=== PATIENT | female | born 1995 ===

== ENCOUNTER 2017-02-04 13:52 | Emergency (ER) | payer SELFPAY ==
[2017-02-04 14:01] VITALS: TEMP 98.2
--- NOTE | 2017-02-04 14:14 | ED PDOC ---
HPI: General Adult Time Seen by Provider: 02/04/17 14:05 Chief Complaint (Nursing): Dizziness/Lightheaded Chief Complaint (Provider): near syncopal episode History Per: Patient History/Exam Limitations: no limitations Onset/Duration Of Symptoms: Other (prior to arrival) Additional Complaint(s): 21yo female was standing at work when she started seeing "spots" and felt like she was going to pass out, prompting this ED visit. She reports that after sitting down she felt better. Patient works in a classroom with students. She ate and drank today. No chest pain or shortness of breath. No fall, LOC, head injury, abdominal pain, urinary symptoms. Last menstrual period was 2 weeks ago. Past Medical History Reviewed: Historical Data, Nursing Documentation, Vital Signs Vital Signs: Last Vital Signs Temp 98.2 F 02/04/17 13:58 Pulse 90 02/04/17 13:58 Resp 18 02/04/17 13:58 BP 132/77 02/04/17 13:58 Pulse Ox 100 02/04/17 14:52 - Medical History PMH: Asthma Denies: Chronic Kidney Disease - Surgical History Surgical History: No Surg Hx - Family History Family History: States: Unknown Family Hx - Social History Drugs: Denies - Home Medications Home Medications: Ambulatory Orders Medication Instructions Recorded Albuterol 0.083% [Albuterol 0.083% 2.5 mg IH QID PRN #20 08/14/16 Inhal Tara (2.5 mg/3 ml) UD] Albuterol HFA [Ventolin HFA 90 1 puff IH BID PRN #1 unit 08/14/16 mcg/actuation (8 g)] Amoxicillin/Clavulanate [Augmentin 1 tab PO BID #20 tab 08/14/16 875 MG-125 MG] - Allergies Allergies/Adverse Reactions: Allergies Allergy/AdvReac Type Severity Reaction Status Date / Time No Known Allergies Allergy Verified 08/14/16 15:16 Review of Systems ROS Statement: Except As Marked, All Systems Reviewed And Found Negative Constitutional: Negative for: Fever, Chills ENT: Negative for: Throat Swelling Cardiovascular: Positive for: Palpitations. Negative for: Chest Pain Respiratory: Negative for: Cough, Shortness of Breath, SOB with Exertion Gastrointestinal: Negative for: Nausea, Vomiting, Abdominal Pain, Diarrhea, Constipation Genitourinary Female: Negative for: Dysuria, Hematuria Musculoskeletal: Negative for: Neck Pain Skin: Negative for: Rash Neurological: Positive for: Other (near syncope). Negative for: Incoordination , Change in Speech, Seizures, Altered Mental Status, Headache Physical Exam - Reviewed Nursing Documentation Reviewed: Yes Vital Signs Reviewed: Yes - Physical Exam Appears: Positive for: Well, Non-toxic, No Acute Distress Head Exam: Positive for: ATRAUMATIC, NORMAL INSPECTION, NORMOCEPHALIC Skin: Positive for: Warm, Dry Eye Exam: Positive for: EOMI, PERRL ENT: Positive for: Normal ENT Inspection Cardiovascular/Chest: Positive for: Regular Rate, Rhythm Respiratory: Positive for: Normal Breath Sounds. Negative for: Rales, Rhonchi, Wheezing Gastrointestinal/Abdominal: Positive for: Normal Exam, Soft. Negative for: Tenderness Back: Positive for: Normal Inspection Extremity: Positive for: Normal ROM Neurologic/Psych: Positive for: Alert, senior estimator II-XII, Oriented (x3), Gait (normal) . Negative for: Motor/Sensory Deficits - ECG O2 Sat by Pulse Oximetry: 100 (RA) Pulse Ox Interpretation: Normal Medical Decision Making Medical Decision Makin: impression near syncope r/o electrolyte abnormality, orthostatic hypotension, arrhythmia, Plan: --ekg --orthostatics --abs --ivf --reassess 2:51PM Nurse performed orthostatic vital signs and they are positive for a change. IVF infusing. 3:00PM Will sign out to Dr. Hilario to follow-up labs, test, ekg and reevaluate after fluids Disposition - Clinical Impression Clinical Impression: Pre-syncope - Disposition Disposition Time: 15:00 Condition: FAIR Additional Comments - Additional Comments Additional Comments: Scribe Attestation: Documented by Geramin Shi acting as a scribe for Ami Pandya MD. Scribe Attestation: All medical record entries made by the Scribe were at my direction and personally dictated by me. I have reviewed the chart and agree that the record accurately reflects my personal performance of the history, physical exam, medical decision making, and the department course for this patient. I have also personally directed, reviewed, and agree with the discharge instructions and disposition.
[2017-02-04 14:57] LABS: BASO % 0.6 % (0.0-2.0); EOS # 0.2 K/uL (0.0-0.7); EOS % 2.6 % (0.0-4.0); HEMATOCRIT 39.5 % (34.0-47.0); LYMPH % 23.5 % (20.0-40.0); MEAN CELL VOLUME 84.1 fl (81.0-99.0); MEAN CORPUSCULAR HEMOGLOBIN 28.5 pg (27.0-31.0); MEAN CORPUSCULAR HGB CONC 33.9 g/dL (33.0-37.0); MEAN PLATELET VOLUME 9.1 fl (7.2-11.7); MONO # 0.5 K/uL (0.0-0.8); MONO % 6.2 % (0.0-10.0); NEUT # 5.8 K/uL (1.8-7.0); NEUT % 67.1 % (50.0-75.0); NRBC % 0.1 % (0.0-0.0); RED CELL DISTRIBUTION WIDTH 13.4 % (11.5-14.5); WHITE BLOOD COUNT 8.6 K/uL (4.8-10.8)
--- NOTE | 2017-02-04 15:08 | ED PDOC ---
- Laboratory Results Result Diagrams: 02/04/17 12:00 02/04/17 15:30 - ECG O2 Sat by Pulse Oximetry: 100 (RA) Medical Decision Making Medical Decision Makin signed over to me by Stewart Pandya MD pending labs, EKG, reassess Time: 1710 Patient reports feeling significantly better, tolerated PO and will be discharged with follow up instructions. Disposition Counseled Patient/Family Regarding: Studies Performed, Diagnosis, Need For Followup - Clinical Impression Clinical Impression: Near syncope - POA Present On Arrival: None - Disposition Referrals: [facility] [Outside] [facility] [Outside] Disposition: Routine/Home Disposition Time: 16:00 Condition: IMPROVED Additional Instructions: follow up with your primary doctor in 1-2 days. stay hydrated. return to the ED with any worsening or concerning symptoms. Instructions: Near Syncope (ED) Forms: [facility] ED School/Work Excuse Additional Comments - Additional Comments Additional Comments: Scribe Attestation: Documented by Germain Shi acting as a scribe for Danitza Hilario MD. Scribe Attestation: All medical record entries made by the Scribe were at my direction and personally dictated by me. I have reviewed the chart and agree that the record accurately reflects my personal performance of the history, physical exam, medical decision making, and the department course for this patient. I have also personally directed, reviewed, and agree with the discharge instructions and disposition.
[2017-02-04 15:18] LABS: ALB/GLOB RATIO 1.2 (1.0-2.1); ALKALINE PHOSPHATASE 61 U/L (38-126); ALT/SGPT 13 U/L (9-52); AST/SGOT 54 U/L (14-36); BILIRUBIN,TOTAL 1.2 mg/dl (0.2-1.3); BLOOD UREA NITROGEN 19 mg/dl (7-17); CALCIUM 9.3 mg/dL (8.4-10.2); CARBON DIOXIDE 25 mmol/L (22-30); CHLORIDE 103 mmol/L (98-107); GFR AFRICAN-AMERICAN > 60; GLUCOSE,RANDOM 76 mg/dL (65-105); MAGNESIUM 1.9 MG/DL (1.6-2.3); PHOSPHOROUS 4.6 mg/dl (2.5-4.5); SODIUM 140 mmol/l (132-148); TOTAL PROTEIN 8.5 G/DL (6.3-8.2)
[2017-02-04 15:24] LABS: POTASSIUM 5.6 MMOL/L (3.6-5.0)
[2017-02-04 16:20] LABS: ALB/GLOB RATIO 1.3 (1.0-2.1); ALKALINE PHOSPHATASE 56 U/L (38-126); ALT/SGPT 23 U/L (9-52); AST/SGOT 23 U/L (14-36); BILIRUBIN,TOTAL 0.2 mg/dl (0.2-1.3); BLOOD UREA NITROGEN 18 mg/dl (7-17); CALCIUM 9.1 mg/dL (8.4-10.2); CARBON DIOXIDE 26 mmol/L (22-30); CHLORIDE 106 mmol/L (98-107); GFR AFRICAN-AMERICAN > 60; GLUCOSE,RANDOM 81 mg/dL (65-105); POTASSIUM 4.4 MMOL/L (3.6-5.0); SODIUM 141 mmol/l (132-148)
[2017-02-04 17:25] VITALS: BP 112/82; PULSE 82; RESP 16
[2017-02-04 22:34] VITALS: O2SAT 100
== END 2017-02-04 17:25 | disposition home or self-care (01) ==
LOC: H.ER 13:52
DX: R55 Syncope and collapse (principal)
CPT/HCPCS: 80053; 81025; 83735; 84100; 85025; 99283; J7040

== ENCOUNTER 2017-03-03 17:33 | Emergency (ER) | payer OTHER ==
[2017-03-03 17:39] VITALS: BP 136/80; PULSE 87; RESP 18; TEMP 98.5; O2SAT 100
--- NOTE | 2017-03-03 17:47 | ED PDOC ---
- ECG O2 Sat by Pulse Oximetry: 100
--- NOTE | 2017-03-03 18:13 | ED PDOC ---
HPI: Psych/Substance Abuse Time Seen by Provider: 03/03/17 17:39 Chief Complaint (Nursing): Anxiety Chief Complaint (Provider): Anxiety History Per: Patient History/Exam Limitations: no limitations Onset/Duration Of Symptoms: Days (x2-3 prior to arrival) Additional Complaint(s): Anai Dubon, 21 year old female presents to the ED on 03/03/17 stating that she has been having increased anxiety for 2-3 days prior to arrival. The patient has had anxiety attacks in the past and has seen her doctor for it. She has been prescribed Xanax once and has never seen a psychiatrist. The patient states that she has been feeling very stressed out at work and at home. When she gets the attack she feels very jittery and overwhelmed. She also states that has been having intermittent periumbilical abdominal pain for 2 days. The patient denies any suicidal/homicidal ideations, nausea, vomiting, and diarrhea. The patient's last bowel movement was today and was normal. She currently does not have any symptoms. PMD: Bao Mueller MD Past Medical History Reviewed: Historical Data, Nursing Documentation, Vital Signs Vital Signs: Last Vital Signs Temp 98.5 F 03/03/17 17:34 Pulse 87 03/03/17 17:34 Resp 18 03/03/17 17:34 BP 136/80 03/03/17 17:34 Pulse Ox 100 03/03/17 17:34 - Medical History PMH: Anxiety, Asthma Denies: Chronic Kidney Disease - Family History Family History: States: Unknown Family Hx - Home Medications Home Medications: Ambulatory Orders Medication Instructions Recorded Albuterol 0.083% [Albuterol 0.083% 2.5 mg IH QID PRN #20 08/14/16 Inhal Tara (2.5 mg/3 ml) UD] Albuterol HFA [Ventolin HFA 90 1 puff IH BID PRN #1 unit 08/14/16 mcg/actuation (8 g)] Amoxicillin/Clavulanate [Augmentin 1 tab PO BID #20 tab 08/14/16 875 MG-125 MG] Nitrofurantoin Macrocrystals 100 mg PO BID #14 cap 03/03/17 [Macrobid] - Allergies Allergies/Adverse Reactions: Allergies Allergy/AdvReac Type Severity Reaction Status Date / Time No Known Allergies Allergy Verified 08/14/16 15:16 Review of Systems Gastrointestinal: Positive for: Abdominal Pain (periumbilical). Negative for: Nausea, Vomiting, Diarrhea Psych: Positive for: Anxiety. Negative for: Suicidal ideation (and no homicidal ideations) Physical Exam - Reviewed Nursing Documentation Reviewed: Yes Vital Signs Reviewed: Yes - Physical Exam Appears: Positive for: Well, Non-toxic, No Acute Distress Head Exam: Positive for: ATRAUMATIC, NORMOCEPHALIC Skin: Positive for: Normal Color, Warm, Dry Eye Exam: Positive for: Normal appearance ENT: Positive for: Normal ENT Inspection Neck: Positive for: Normal, Painless ROM Cardiovascular/Chest: Positive for: Regular Rate, Rhythm, Chest Non Tender Respiratory: Positive for: Normal Breath Sounds. Negative for: Respiratory Distress Gastrointestinal/Abdominal: Positive for: Normal Exam, Soft. Negative for: Tenderness Back: Positive for: Normal Inspection Extremity: Positive for: Normal ROM Neurologic/Psych: Positive for: Alert, Oriented (x3) - Laboratory Results Result Diagrams: 03/03/17 18:29 03/03/17 18:29 Urine POC: Negative - ECG O2 Sat by Pulse Oximetry: 100 (RA) Pulse Ox Interpretation: Normal Medical Decision Making Medical Decision Makin:39 Initial Impression: Anxiety Initial Plan: * Alcohol Serum Stat * COMP Metabolic Panel Stat * Drug Screen, Urine Stat * Lipase Stat * ED Urine (POC) Stat * ED Urine Dipstick (POC) Stat * CBC (with Differential) Stat * Crisis Evaluation As Ordered Scribe Attestation: Documented by Kalpana Moreno, acting as a scribe for Hammad Lenz PA-C. Provider Scribe Attestation: All medical record entries made by the Scribe were at my direction and personally dictated by me. I have reviewed the chart and agree that the record accurately reflects my personal performance of the history, physical exam, medical decision making, and the department course for this patient. I have also personally directed, reviewed, and agree with the discharge instructions and disposition. Disposition - Clinical Impression Clinical Impression: UTI (urinary tract infection), Anxiety - Patient ED Disposition Is Patient to be Admitted: No - Disposition Disposition: Routine/Home Disposition Time: 19:33 Condition: STABLE Additional Instructions: Follow up with psychiatrist as scheduled without fail. Prescriptions: Nitrofurantoin Macrocrystals [Macrobid] 100 mg PO BID #14 cap Instructions: Urinary Tract Infection in Women (ED), Anxiety (ED) Forms: [facility] ED School/Work Excuse Print Language: URUGUAYAN
[2017-03-03 18:35] LABS: BASO # 0.1 K/uL (0.0-0.2); BASO % 0.6 % (0.0-2.0); EOS # 0.2 K/uL (0.0-0.7); LYMPH # 2.2 K/uL (1.0-4.3); LYMPH % 23.3 % (20.0-40.0); MEAN CELL VOLUME 84.6 fl (81.0-99.0); MEAN CORPUSCULAR HEMOGLOBIN 28.3 pg (27.0-31.0); MEAN CORPUSCULAR HGB CONC 33.4 g/dL (33.0-37.0); MEAN PLATELET VOLUME 8.6 fl (7.2-11.7); MONO # 0.5 K/uL (0.0-0.8); MONO % 5.8 % (0.0-10.0); NEUT # 6.4 K/uL (1.8-7.0); NEUT % 68.3 % (50.0-75.0); RED CELL DISTRIBUTION WIDTH 13.2 % (11.5-14.5); WHITE BLOOD COUNT 9.4 K/uL (4.8-10.8)
[2017-03-03 18:45] LABS: ALB/GLOB RATIO 1.2 (1.0-2.1); ALCOHOL SERUM < 10 mg/dl (0-10); ALKALINE PHOSPHATASE 58 U/L (38-126); ALT/SGPT 24 U/L (9-52); AST/SGOT 21 U/L (14-36); BILIRUBIN,TOTAL 0.2 mg/dl (0.2-1.3); BLOOD UREA NITROGEN 17 mg/dl (7-17); CALCIUM 9.3 mg/dL (8.4-10.2); CARBON DIOXIDE 25 mmol/L (22-30); CHLORIDE 102 mmol/L (98-107); GFR AFRICAN-AMERICAN > 60; GLUCOSE,RANDOM 82 mg/dL (65-105); LIPASE 142 U/L (23-300); SODIUM 139 mmol/l (132-148); TOTAL PROTEIN 7.9 G/DL (6.3-8.2)
[2017-03-03 19:12] LABS: RBC URINE 1 /hpf (0-3); URINE BACTERIA FEW (<OCC); URINE BILIRUBIN NEGATIVE (NEGATIVE); URINE BLOOD NEGATIVE (NEGATIVE); URINE COLOR YELLOW (YELLOW); URINE GLUCOSE (UA) NEG (Normal); URINE KETONE NEGATIVE (NEGATIVE); URINE LEUKOCYTE ESTERASE MOD Leu/uL (Negative); URINE PROTEIN NEGATIVE (NEGATIVE); URINE UROBILINOGEN 0.2-1.0 mg/dL (0.2-1.0); WBC URINE 2 /hpf (0-5)
== END 2017-03-03 20:29 | disposition home or self-care (01) ==
LOC: H.ER 17:33
DX: F41.9 Anxiety disorder, unspecified (principal); N39.0 Urinary tract infection, site not specified; J45.909 Unspecified asthma, uncomplicated

== ENCOUNTER 2017-06-03 21:11 | Emergency (ER) | payer SELFPAY ==
[2017-06-03 21:32] VITALS: BP 159/90; PULSE 89; RESP 16; TEMP 98.6; O2SAT 99
--- NOTE | 2017-06-03 22:01 | ED PDOC ---
HPI: General Adult Time Seen by Provider: 06/03/17 21:51 Chief Complaint (Nursing): Back Pain Chief Complaint (Provider): Tender bumps, left neck x 3 days History Per: Patient History/Exam Limitations: no limitations Onset/Duration Of Symptoms: Days Have you had recent travel within the past 21 days to any of the following countries: [place], [place], [place] or [place]?: No Current Symptoms Are (Timing): Still Present Severity: Mild Pain Scale Rating Of: 4 Additional Complaint(s): No sore throat, stuffy nose, ear pain. No weight loss. No fever/chills Past Medical History Reviewed: Historical Data, Nursing Documentation, Vital Signs Vital Signs: Last Vital Signs Temp 98.6 F 06/03/17 21:28 Pulse 89 06/03/17 21:28 Resp 16 06/03/17 21:28 BP 159/90 H 06/03/17 21:28 Pulse Ox 99 06/03/17 21:28 - Medical History PMH: Anxiety, Asthma Denies: Chronic Kidney Disease - Surgical History Surgical History: No Surg Hx - Family History Family History: States: Unknown Family Hx - Home Medications Home Medications: Ambulatory Orders Medication Instructions Recorded Albuterol 0.083% [Albuterol 0.083% 2.5 mg IH QID PRN #20 08/14/16 Inhal Tara (2.5 mg/3 ml) UD] Albuterol HFA [Ventolin HFA 90 1 puff IH BID PRN #1 unit 08/14/16 mcg/actuation (8 g)] Amoxicillin/Clavulanate [Augmentin 1 tab PO BID #20 tab 08/14/16 875 MG-125 MG] Nitrofurantoin Macrocrystals 100 mg PO BID #14 cap 03/03/17 [Macrobid] Amoxicillin/Clavulanate [Augmentin 1 tab PO BID #20 tab 06/03/17 875 MG-125 MG] Ibuprofen [Motrin Tab] 800 mg PO Q6H PRN #20 tab 06/03/17 - Allergies Allergies/Adverse Reactions: Allergies Allergy/AdvReac Type Severity Reaction Status Date / Time No Known Allergies Allergy Verified 08/14/16 15:16 Review of Systems ROS Statement: Except As Marked, All Systems Reviewed And Found Negative Constitutional: Negative for: Fever, Chills, Weakness ENT: Negative for: Ear Pain, Throat Pain Cardiovascular: Negative for: Chest Pain Musculoskeletal: Positive for: Neck Pain Skin: Negative for: Rash Physical Exam - Reviewed Nursing Documentation Reviewed: Yes Vital Signs Reviewed: Yes - Physical Exam Appears: Positive for: Well, Non-toxic, No Acute Distress Head Exam: Positive for: ATRAUMATIC, NORMAL INSPECTION, NORMOCEPHALIC Skin: Positive for: Normal Color, Warm, DRY Eye Exam: Positive for: Normal appearance ENT: Positive for: Normal ENT Inspection Neck: Positive for: Normal, Painless ROM Respiratory: Negative for: Accessory Muscle Use, Respiratory Distress Back: Positive for: Normal Inspection Extremity: Positive for: Normal ROM Lymphatic: Positive for: Adenopathy (Left posterior neck ) Neurologic/Psych: Positive for: Alert, Oriented - ECG O2 Sat by Pulse Oximetry: 99 Medical Decision Making Medical Decision Making: Discussed f/u for labs and biopsy if symptoms persist after antibiotics. Disposition - Clinical Impression Clinical Impression: Lymph node enlargement - Patient ED Disposition Is Patient to be Admitted: No Counseled Patient/Family Regarding: Diagnosis, Need For Followup, Rx Given - Disposition Referrals: [facility] [Outside] Disposition: Routine/Home Disposition Time: 22:01 Condition: GOOD Prescriptions: Amoxicillin/Clavulanate [Augmentin 875 MG-125 MG] 1 tab PO BID #20 tab Ibuprofen [Motrin Tab] 800 mg PO Q6H PRN #20 tab PRN Reason: Pain Instructions: Lymphadenopathy (ED)
== END 2017-06-03 22:37 | disposition home or self-care (01) ==
LOC: H.ER 21:11
DX: R59.9 Enlarged lymph nodes, unspecified (principal); F41.9 Anxiety disorder, unspecified; J45.909 Unspecified asthma, uncomplicated

== ENCOUNTER 2017-08-21 12:30 | Emergency (ER) | payer SELFPAY ==
[2017-08-21 12:40] VITALS: BP 156/83; PULSE 101; RESP 18; TEMP 98.7; O2SAT 96
[2017-08-21] MEDS ORDERED: Absorbable Gelatin Sponge Size 12-7 ONE (12:42)
[2017-08-21] MEDS ORDERED: Absorbable Gelatin Sponge Size 12-7 TP ONE (12:50)
--- NOTE | 2017-08-21 12:51 | ED PDOC ---
HPI: Skin/Bite Injury Time Seen by Provider: 08/21/17 12:36 Chief Complaint (Nursing): Abnormal Skin Integrity Chief Complaint (Provider): Hand laceration History Per: Patient History/Exam Limitations: no limitations Onset/Duration Of Symptoms: Mins Current Symptoms Are (Timing): Still Present Quality Of Symptoms: Painful Severity: Moderate Additional Complaint(s): Pt was helping make a halloween constum. She states she was tring to cut a peice of metal and the scissor slipped. Unknown tetanus. Past Medical History Reviewed: Historical Data, Nursing Documentation, Vital Signs Vital Signs: Last Vital Signs Temp 98.7 F 08/21/17 12:36 Pulse 101 H 08/21/17 12:36 Resp 18 08/21/17 12:36 BP 156/83 H 08/21/17 12:36 Pulse Ox 96 08/21/17 12:36 - Medical History PMH: Anxiety, Asthma Denies: Chronic Kidney Disease - Surgical History Surgical History: No Surg Hx - Family History Family History: States: Unknown Family Hx - Living Arrangements Living Arrangements: With Family - Social History Current smoker - smoking cessation education provided: Yes Alcohol: None Drugs: Denies - Home Medications Home Medications: Ambulatory Orders Medication Instructions Recorded Albuterol 0.083% [Albuterol 0.083% 2.5 mg IH QID PRN #20 08/14/16 Inhal Tara (2.5 mg/3 ml) UD] Albuterol HFA [Ventolin HFA 90 1 puff IH BID PRN #1 unit 08/14/16 mcg/actuation (8 g)] Amoxicillin/Clavulanate [Augmentin 1 tab PO BID #20 tab 08/14/16 875 MG-125 MG] Nitrofurantoin Macrocrystals 100 mg PO BID #14 cap 03/03/17 [Macrobid] Amoxicillin/Clavulanate [Augmentin 1 tab PO BID #20 tab 06/03/17 875 MG-125 MG] Ibuprofen [Motrin Tab] 800 mg PO Q6H PRN #20 tab 06/03/17 Cephalexin [Keflex] 500 mg PO BID #14 capsule 08/21/17 - Allergies Allergies/Adverse Reactions: Allergies Allergy/AdvReac Type Severity Reaction Status Date / Time No Known Allergies Allergy Verified 08/21/17 12:35 Review of Systems ROS Statement: Except As Marked, All Systems Reviewed And Found Negative Constitutional: Negative for: Fever, Chills Skin: Positive for: Other (Laceration, palm ) Physical Exam - Reviewed Nursing Documentation Reviewed: Yes Vital Signs Reviewed: Yes - Physical Exam Appears: Positive for: Well, Non-toxic, No Acute Distress Head Exam: Positive for: ATRAUMATIC, NORMAL INSPECTION, NORMOCEPHALIC Skin: Positive for: Warm. Negative for: Normal Color (skin avulsion, base of index finger, left palm ) Eye Exam: Positive for: Normal appearance ENT: Positive for: Normal ENT Inspection Neck: Positive for: Normal, Painless ROM Respiratory: Negative for: Accessory Muscle Use, Respiratory Distress Back: Positive for: Normal Inspection Extremity: Positive for: Normal ROM, Other (Full ROM in hand ). Negative for: Tenderness Neurologic/Psych: Positive for: Alert, Oriented - ECG O2 Sat by Pulse Oximetry: 96 Medical Decision Making Medical Decision Making: Wound irrigated. Gell foam and pressure dressing applied. Disposition - Clinical Impression Clinical Impression: Skin avulsion, Tetanus toxoid vaccination administered at current visit - Patient ED Disposition Is Patient to be Admitted: No Counseled Patient/Family Regarding: Diagnosis, Need For Followup, Rx Given - Disposition Referrals: [facility] [Outside] Disposition: Routine/Home Disposition Time: 12:52 Condition: GOOD Prescriptions: Cephalexin [Keflex] 500 mg PO BID #14 capsule Instructions: Skin Avulsion (ED)
== END 2017-08-21 13:22 | disposition home or self-care (01) ==
LOC: H.ER 12:30
DX: S61.412A Laceration without foreign body of left hand, initial encounter (principal); F41.9 Anxiety disorder, unspecified; J45.909 Unspecified asthma, uncomplicated

== ENCOUNTER 2017-10-21 15:56 | Emergency (ER) | payer SELFPAY ==
[2017-10-21 16:06] VITALS: RESP 16; O2SAT 98
[2017-10-21] MEDS ORDERED: Naproxen 500 MG TAB PO ONE ×2 (17:12→18:17)
--- NOTE | 2017-10-21 18:34 | ED PDOC ---
HPI: General Adult Time Seen by Provider: 10/21/17 16:34 Chief Complaint (Nursing): ENT Problem History Per: Patient Additional Complaint(s): Pt. states for the past week she's had a sore throat along with feeling feverish. Has not used any meds to help relieve symptoms. Further states that she has pain with swallowing. Denies SOB, chest pain, abdominal pain, rash, throat swelling. Past Medical History Reviewed: Historical Data, Nursing Documentation, Vital Signs Vital Signs: Last Vital Signs Temp 97.4 F L 10/21/17 16:01 Pulse 105 H 10/21/17 16:01 Resp 16 10/21/17 16:01 BP 174/97 H 10/21/17 16:01 Pulse Ox 98 10/21/17 16:01 - Medical History PMH: Anxiety, Asthma Denies: Chronic Kidney Disease - Family History Family History: States: No Known Family Hx - Home Medications Home Medications: Ambulatory Orders Medication Instructions Recorded Albuterol 0.083% [Albuterol 0.083% 2.5 mg IH QID PRN #20 08/14/16 Inhal Taar (2.5 mg/3 ml) UD] Albuterol HFA [Ventolin HFA 90 1 puff IH BID PRN #1 unit 08/14/16 mcg/actuation (8 g)] Amoxicillin/Clavulanate [Augmentin 1 tab PO BID #20 tab 08/14/16 875 MG-125 MG] Nitrofurantoin Macrocrystals 100 mg PO BID #14 cap 03/03/17 [Macrobid] Amoxicillin/Clavulanate [Augmentin 1 tab PO BID #20 tab 06/03/17 875 MG-125 MG] Ibuprofen [Motrin Tab] 800 mg PO Q6H PRN #20 tab 06/03/17 Cephalexin [Keflex] 500 mg PO BID #14 capsule 08/21/17 Naproxen [Naprosyn] 500 mg PO BID PRN #14 tab 10/21/17 - Allergies Allergies/Adverse Reactions: Allergies Allergy/AdvReac Type Severity Reaction Status Date / Time No Known Allergies Allergy Verified 08/21/17 12:35 Review of Systems ROS Statement: Except As Marked, All Systems Reviewed And Found Negative ENT: Positive for: Throat Pain Physical Exam - Physical Exam Appears: Positive for: Well, Non-toxic, No Acute Distress Skin: Positive for: Normal Color, Warm. Negative for: Rash Eye Exam: Positive for: EOMI, Normal appearance, PERRL ENT: Positive for: TM Is/Are (non-erythematous, non-bulging b/l), Pharyngeal Erythema. Negative for: Tonsillar Exudate, Tonsillar Swelling Neck: Positive for: Normal, Painless ROM Cardiovascular/Chest: Positive for: Regular Rate, Rhythm Respiratory: Positive for: CNT, Normal Breath Sounds Gastrointestinal/Abdominal: Positive for: Normal Exam, Soft. Negative for: Tenderness, Organomegaly Back: Positive for: Normal Inspection. Negative for: L CVA Tenderness, R CVA Tenderness Extremity: Positive for: Normal ROM Neurologic/Psych: Positive for: Alert, Oriented - Laboratory Results Urine POC: Negative - ECG O2 Sat by Pulse Oximetry: 98 - Progress ED Course And Treament: Rapid strep: negative. Naproxen 500mg PO ordered. Repeat BP: 130/80 Disposition - Clinical Impression Clinical Impression: Pharyngitis - Patient ED Disposition Is Patient to be Admitted: No - Disposition Disposition: Routine/Home Disposition Time: 18:35 Condition: STABLE Prescriptions: Naproxen [Naprosyn] 500 mg PO BID PRN #14 tab PRN Reason: Pain Instructions: Pharyngitis in Children (ED) Print Language: KINYARWANDA
[2017-10-21 18:41] VITALS: BP 130/80; PULSE 82; TEMP 97.1
== END 2017-10-21 18:48 | disposition home or self-care (01) ==
LOC: H.ER 15:56
DX: J02.9 Acute pharyngitis, unspecified (principal); J45.909 Unspecified asthma, uncomplicated; F41.9 Anxiety disorder, unspecified

== ENCOUNTER 2018-09-21 19:31 | Emergency (ER) | payer OTHER ==
[2018-09-21 20:29] VITALS: O2SAT 100
--- NOTE | 2018-09-21 21:04 | ED PDOC ---
HPI: Headache Time Seen by Provider: 09/21/18 20:45 Chief Complaint (Nursing): Headache Chief Complaint (Provider): Headache History Per: Patient History/Exam Limitations: no limitations Onset/Duration Of Symptoms: Days (x1 day) Current Symptoms Are (Timing): Gone Now Additional Complaint(s): Anai Dubon is a 22 year old female with no past medical history, who presents to the emergency department after sustaining a minor head injury at work yesterday. Patient states she was using the fridge at work and hit her head on the freezer door, sustaining a minor scrape on her head. She states she had small amounts of blood at the site of the wound associated with a minor headache at the time. Patient is seeking a note to go back to work and denies any nausea or vomiting. PMD: Keshawn Serrano Past Medical History Reviewed: Historical Data, Nursing Documentation, Vital Signs Vital Signs: Last Vital Signs Temp 98.5 F 09/21/18 20:26 Pulse 88 09/21/18 20:26 Resp 20 09/21/18 20:26 BP 115/73 09/21/18 20:26 Pulse Ox 100 09/21/18 20:26 - Medical History PMH: Anxiety, Asthma Denies: Chronic Kidney Disease - Surgical History Surgical History: No Surg Hx - Family History Family History: States: Unknown Family Hx - Social History Current smoker - smoking cessation education provided: No Ex-Smoker (has not smoked in the last 12 months): No Alcohol: None Drugs: Denies - Home Medications Home Medications: Ambulatory Orders Medication Instructions Recorded Albuterol 0.083% [Albuterol 0.083% 2.5 mg IH QID PRN #20 08/14/16 Inhal Tara (2.5 mg/3 ml) UD] Albuterol HFA [Ventolin HFA 90 1 puff IH BID PRN #1 unit 08/14/16 mcg/actuation (8 g)] Amoxicillin/Clavulanate [Augmentin 1 tab PO BID #20 tab 08/14/16 875 MG-125 MG] Nitrofurantoin Macrocrystals 100 mg PO BID #14 cap 03/03/17 [Macrobid] Amoxicillin/Clavulanate [Augmentin 1 tab PO BID #20 tab 06/03/17 875 MG-125 MG] Ibuprofen [Motrin Tab] 800 mg PO Q6H PRN #20 tab 06/03/17 Cephalexin [Keflex] 500 mg PO BID #14 capsule 08/21/17 Naproxen [Naprosyn] 500 mg PO BID PRN #14 tab 10/21/17 - Allergies Allergies/Adverse Reactions: Allergies Allergy/AdvReac Type Severity Reaction Status Date / Time No Known Allergies Allergy Verified 08/21/17 12:35 Review of Systems ROS Statement: Except As Marked, All Systems Reviewed And Found Negative Gastrointestinal: Negative for: Nausea, Vomiting Neurological: Positive for: Headache Physical Exam - Reviewed Nursing Documentation Reviewed: Yes Vital Signs Reviewed: Yes - Physical Exam Appears: Positive for: Non-toxic, No Acute Distress Head Exam: Positive for: ATRAUMATIC, NORMOCEPHALIC Skin: Positive for: Normal Color Eye Exam: Positive for: Normal appearance, PERRL Cardiovascular/Chest: Negative for: Bradycardia, Tachycardia Respiratory: Negative for: Accessory Muscle Use, Respiratory Distress Neurologic/Psych: Positive for: Alert, Oriented (x3) - ECG O2 Sat by Pulse Oximetry: 100 (RA) Pulse Ox Interpretation: Normal Medical Decision Making Medical Decision Making: Time: 20:45 Plan: --Give note to patient regarding her visit to the ED. Scribe Attestation: Documented by Klever Schwarz, acting as a scribe for Azra Parson PA-C Provider Scribe Attestation: All medical record entries made by the Scribe were at my direction and personally dictated by me. I have reviewed the chart and agree that the record accurately reflects my personal performance of the history, physical exam, medical decision making, and the department course for this patient. I have also personally directed, reviewed, and agree with the discharge instructions and disposition. Disposition - Clinical Impression Clinical Impression: Head injury - Disposition Disposition: Routine/Home Disposition Time: 21:05 Condition: STABLE Instructions: Closed Head Injury (DC) Forms: [facility] (Albanian), [facility] ED School/Work Excuse
[2018-09-21 21:39] VITALS: BP 124/68; PULSE 74; RESP 16; TEMP 98.4
== END 2018-09-21 21:38 | disposition home or self-care (01) ==
LOC: H.ER 19:31
DX: S09.90XA Unspecified injury of head, initial encounter (principal); W22.8XXA Striking against or struck by other objects, initial encounter; Y99.0 Civilian activity done for income or pay

== ENCOUNTER 2018-12-05 08:43 | Emergency (ER) | payer OTHER ==
[2018-12-05 08:50] VITALS: RESP 18; O2SAT 99
--- NOTE | 2018-12-05 10:15 | RAD ---
Date of service: 12/05/2018 HISTORY: Cough COMPARISON: No prior. TECHNIQUE: Chest PA and lateral FINDINGS: LINES AND TUBES: None. LUNG AND PLEURA: The lungs are well inflated and clear. No pleural effusion or pneumothorax. HEART AND MEDIASTINUM: The heart is not enlarged. No aortic atherosclerotic calcifications present. The hilar and mediastinal contours are within normal limits. SKELETAL STRUCTURES: The bony structures are within normal limits for the patient's age. VISUALIZED UPPER ABDOMEN: Normal. OTHER FINDINGS: None. IMPRESSION: No active pulmonary disease.
--- NOTE | 2018-12-05 11:00 | ED PDOC ---
History of Present Illness History of Present Illness: 23yo female c/o flu like symptoms ongoing 3-4 days. Admits to headache, sore throat, myalgia and fatigue. No SOB, orthopnea, syncope or edema. HPI: Influenza Time Seen by Provider: 12/05/18 09:05 Chief Complaint: Flu-like Symptoms History Per: Patient Exam Limitations: no limitations Symptoms include: headache, bodyaches, sore throat, cough. denies: syncope, chest pain, difficulty breathing, seizure, rash, blurry vision Risk factors for flu complications: Yes: chronic lung disease. No: adult > 65 years, child < 2 years, , heart disease, metabolic disease, immunosuppression Past Medical History Reviewed: Historical Data, Nursing Documentation, Vital Signs Vital Signs: Last Vital Signs Temp 98.4 F 12/05/18 08:50 Pulse 90 12/05/18 08:50 Resp 18 12/05/18 08:50 BP 121/80 12/05/18 08:50 Pulse Ox 99 12/05/18 08:50 - Medical History PMH: Anxiety, Asthma Denies: Chronic Kidney Disease - Family History Family History: States: Unknown Family Hx - Immunization History Hx Tetanus Toxoid Vaccination: Yes Hx Influenza Vaccination: No Hx Pneumococcal Vaccination: No - Home Medications Home Medications: Ambulatory Orders Medication Instructions Recorded Albuterol 0.083% [Albuterol 0.083% 2.5 mg IH QID PRN #20 08/14/16 Inhal Tara (2.5 mg/3 ml) UD] Amoxicillin/Clavulanate [Augmentin 1 tab PO BID #20 tab 08/14/16 875 MG-125 MG] RX: Albuterol HFA [Ventolin HFA 90 1 puff IH BID PRN #1 unit 08/14/16 mcg/actuation (8 g)] Nitrofurantoin Macrocrystals 100 mg PO BID #14 cap 03/03/17 [Macrobid] Amoxicillin/Clavulanate [Augmentin 1 tab PO BID #20 tab 06/03/17 875 MG-125 MG] Ibuprofen [Motrin Tab] 800 mg PO Q6H PRN #20 tab 06/03/17 Cephalexin [Keflex] 500 mg PO BID #14 capsule 08/21/17 RX: Naproxen [Naprosyn] 500 mg PO BID PRN #14 tab 10/21/17 Oseltamivir Cap [Tamiflu] 75 mg PO BID #10 cap 12/05/18 RX: Ibuprofen [Motrin Tab] 600 mg PO Q6 PRN #15 tab 12/05/18 - Allergies Allergies/Adverse Reactions: Allergies Allergy/AdvReac Type Severity Reaction Status Date / Time No Known Allergies Allergy Verified 12/05/18 08:58 Review of Systems Constitutional: Positive for: Fever, Chills, Weakness, Malaise ENT: Positive for: Throat Pain Cardiovascular: Negative for: Chest Pain Respiratory: Positive for: Cough. Negative for: Shortness of Breath Gastrointestinal: Positive for: Nausea. Negative for: Vomiting Genitourinary Female: Negative for: Dysuria Musculoskeletal: Positive for: Other (aches and pains). Negative for: Neck Pain Skin: Negative for: Rash, Lesions Neurological: Negative for: Weakness, Numbness Psych: Negative for: Anxiety Physical Exam - Reviewed Nursing Documentation Reviewed: Yes Vital Signs Reviewed: Yes - Physical Exam Appears: Positive for: Well, Non-toxic, No Acute Distress Head Exam: Positive for: ATRAUMATIC, NORMAL INSPECTION, NORMOCEPHALIC Skin: Positive for: Normal Color, Warm, DRY Eye Exam: Positive for: EOMI, Normal appearance, PERRL ENT: Positive for: Normal ENT Inspection, Pharyngeal Erythema Neck: Positive for: Normal, Painless ROM Cardiovascular/Chest: Positive for: Regular Rate, Rhythm Respiratory: Positive for: Normal Breath Sounds Gastrointestinal/Abdominal: Positive for: Normal Exam, Soft Back: Positive for: Normal Inspection Extremity: Positive for: Normal ROM Neurologic/Psych: Positive for: Alert, Oriented. Negative for: Motor/Sensory Deficits Medical Decision Making Medical Decision Making: empiric tmt w tamiflu as asthma history, otherwise well appearing and stable for outpatient management at time ED visit - ECG O2 Sat by Pulse Oximetry: 99 Disposition - Clinical Impression Clinical Impression: Influenza-like symptoms - Patient ED Disposition Is Patient to be Admitted: No - Disposition Referrals: [facility] [Outside] Disposition: Routine/Home Disposition Time: 10:30 Condition: STABLE Additional Instructions: No work or close contact with others for 7 days from onset of symptoms. Tamiflu Rx provided, although anticipate minimal benefit given onset of symptoms >2 days. Drink plenty of fluids, get rest and take motrin for fever or body aches. Return to ER for any worsening symptoms./ Prescriptions: RX: Ibuprofen [Motrin Tab] 600 mg PO Q6 PRN #15 tab PRN Reason: Pain, Moderate (4-7) Oseltamivir Cap [Tamiflu] 75 mg PO BID #10 cap Instructions: Flu, Adult (DC) Forms: [facility] (Erit[place]an), [facility] ED School/Work Excuse
[2018-12-05 11:17] VITALS: BP 107/48; PULSE 78; TEMP 98
== END 2018-12-05 11:20 | disposition home or self-care (01) ==
LOC: H.ER 08:43
DX: J11.1 Influenza due to unidentified influenza virus with other respiratory manifestations (principal)